=== PATIENT | female | born 1995 | race African-American/Black ===

== ENCOUNTER 2017-03-06 10:27 | Emergency (ER) | payer OTHER ==
[~2017-03-06] VITALS: Ht 160 cm; Wt 68.0 kg
[~2017-03-06 10:27] MED LIST: LEVSIN-SL0.125 MG SL; ONDANSETRON HCL4 M2 PO
[2017-03-06 10:28] VITALS: BP 116/81
[2017-03-06] MEDS ORDERED: ATIVAN0.5 MG PO (11:06)
[2017-03-06] MEDS ORDERED: NAPROSYN500 MG PO (11:06)
== END 2017-03-06 11:22 | disposition home or self-care (01) ==
LOC: ER 10:27
DX: G47.09 Other insomnia (principal); G25.3 Myoclonus; R19.7 Diarrhea, unspecified